=== PATIENT | male | born 1965 | race Caucasian/White ===

== ENCOUNTER 2016-08-23 02:46 | Emergency (ER) | payer BC ==
[~2016-08-23] VITALS: Ht 182.9 cm; Wt 148.4 kg
[~2016-08-23 02:46] MED LIST: B-121000 MC2 PO; BENICAR HCT1 TABLE2 PO; CELEBREX200 MG PO; DAILY VITE1 EAC1 PO; EXCEDRIN MIGRA1 EAC3 PO; FLEXERIL10 MG PO; LIDODERM; LIDODERM 5% P1 PATCH TD; Levothroid,Synthroid PO; NAPROSYN500 MG PO; NUCYNTA50 MG PO; PRAVACHOL40 MG PO; PROTONIX40 MG PO; VITAMIN B12-FO1 EACH PO; VITAMIN D1000 INTUN PO; Vicodin,Lortab 5/500 PO; Vitamin B-12 PO
[2016-08-23 03:12] LABS: HEMATOCRIT 43.6 % (38.0-50.0); MCH 26.3 PG (29.0-34.0); MCHC 33.3 G/DL (30.0-36.0); PLATELET COUNT 164 K/uL (156-360); RBC DIS.WIDTH-SD 39.9 % (39-53); RED BLOOD COUNT 5.52 M/uL (4.00-5.50); WHITE BLOOD COUNT 3.2 K/uL (4.1-10.2)
[2016-08-23 03:23] LABS: CHLORIDE 101 mEq/L (99-109); POTASSIUM 3.7 mEq/L (3.7-5.4); SODIUM 138 mEq/L (136-147)
[2016-08-23 03:25] LABS: GLUCOSE 103 mg/dL (70-99)
[2016-08-23 03:26] LABS: ANION GAP 12 MEQ/L (2-14)
[2016-08-23 03:29] LABS: GFR ESTIMATE (CALCULATED) > 59 mL/min/
[2016-08-23 03:30] LABS: UREA NITROGEN (BUN) 14 mg/dL (9-23)
[2016-08-23 04:13] LABS: INFLUENZA A VIRAL ANTIGEN NEGATIVE; INFLUENZA B VIRAL ANTIGEN POSITIVE
[2016-08-23] MEDS ORDERED: VENTOLIN HFA18 GM IH (04:26)
[2016-08-23] MEDS ORDERED: ZOFRAN ODT4 MG PO (04:26)
[2016-08-23] MEDS ORDERED: ROBITUSSIN AC,T10 ML PO (04:26)
[2016-08-23 04:39] VITALS: BP 121/83
== END 2016-08-23 04:41 | disposition home or self-care (01) ==
LOC: EME 02:46
PROVIDERS: Emergency Medicine
DX: J10.1 Influenza due to other identified influenza virus with other respiratory manifestations (principal); J98.01 Acute bronchospasm; Z98.84 Bariatric surgery status; E03.9 Hypothyroidism, unspecified; K21.9 Gastro-esophageal reflux disease without esophagitis; G43.909 Migraine, unspecified, not intractable, without status migrainosus; G89.29 Other chronic pain
CPT/HCPCS: 71020; 80048; 85027; 87502; 93005; 94640; 99281; 99284

== ENCOUNTER 2017-04-06 07:15 | Day surgery (SDC) | payer BC ==
[~2017-04-06] VITALS: Ht 182.9 cm; Wt 145.1 kg
[~2017-04-06 07:15] MED LIST changes: +ROBITUSSIN AC,T10 ML PO; +VENTOLIN HFA18 GM IH; +ZOFRAN ODT4 MG PO
[2017-04-06] MEDS ORDERED: ITRACONAZOLE100 MG PO (07:39)
[2017-04-06 07:42] VITALS: BP 135/85
[2017-04-06 09:14] LABS: POINT-OF-CARE METER ID UU14107333; POINT-OF-CARE USER ID AHSRSCSLC11
[2017-04-06 12:00] VITALS: BP 150/79
[2017-04-06 13:23] VITALS: BP 136/81
== END 2017-04-06 13:20 | disposition home or self-care (01) ==
LOC: SDC 07:15
PROVIDERS: Surgery
PROC: 0WQF0ZZ Repair Abdominal Wall, Open Approach (ICD-10-PCS; principal; 2017-04-06)
DX: K42.9 Umbilical hernia without obstruction or gangrene (principal); I10 Essential (primary) hypertension; E66.01 Morbid (severe) obesity due to excess calories; G47.33 Obstructive sleep apnea (adult) (pediatric); K21.9 Gastro-esophageal reflux disease without esophagitis; E78.5 Hyperlipidemia, unspecified; R73.03 Prediabetes; Z79.84 Long term (current) use of oral hypoglycemic drugs; Z98.84 Bariatric surgery status
CPT/HCPCS: 82948; J0131; J0330; J0690; J1100; J1170; J1644; J2250; J2405; J3010; S0020

== ENCOUNTER 2017-06-12 11:13 | Inpatient (IN) | payer BC ==
[~2017-06-12] VITALS: Ht 182.9 cm; Wt 143.6 kg
[2017-06-12] VITALS (10 sets, daily range): BP systolic 113–133; BP diastolic 59–88
[~2017-06-12 11:13] MED LIST changes: +ITRACONAZOLE100 MG PO
[2017-06-12 13:01] LABS: HEMATOCRIT 25.3 % (38.0-50.0); MCH 26.6 PG (29.0-34.0); MCHC 32.8 G/DL (30.0-36.0); MCV 81.1 FL (86-99); MEAN PLAT.VOLUME 10.6 uM^3 (9.0-12.4); PLATELET COUNT 304 K/uL (156-360); RBC DIS.WIDTH-CV 13.5 % (11.8-14.6); RBC DIS.WIDTH-SD 39.4 % (39-53); RED BLOOD COUNT 3.12 M/uL (4.00-5.50); WHITE BLOOD COUNT 10.2 K/uL (4.1-10.2)
[2017-06-12 13:03] LABS: CARBON DIOXIDE (BICARBONATE) 31.3 MEQ/L (20-31)
[2017-06-12 13:12] LABS: CHLORIDE 104 mEq/L (99-109); POTASSIUM 4.1 mEq/L (3.7-5.4); SODIUM 139 mEq/L (136-147)
[2017-06-12 13:14] LABS: GLUCOSE 113 mg/dL (70-99)
[2017-06-12 13:15] LABS: ANION GAP 9 MEQ/L (2-14)
[2017-06-12 13:18] LABS: GFR ESTIMATE (CALCULATED) > 59 mL/min/
[2017-06-12 13:19] LABS: UREA NITROGEN (BUN) 34 mg/dL (9-23)
[2017-06-12 13:25] LABS: TROP-I INTERPRETATION NEGATIVE; TROPONIN-I 0.01 ng/mL (0.0-0.30)
[2017-06-12] MEDS ORDERED: DOXAZOSIN MESYLA2 MG PO (13:55)
[2017-06-12] MEDS ORDERED: KEFLEX500 MG PO (13:56)
[2017-06-12] MEDS ORDERED: ADIPEX-P37.5 M1 PO (13:57)
[2017-06-12 19:29] LABS: TROP-I INTERPRETATION NEGATIVE; TROPONIN-I 0.01 ng/mL (0.0-0.30)
[2017-06-13] VITALS (11 sets, daily range): BP systolic 112–137; BP diastolic 57–75
[2017-06-13 01:50] LABS: TROP-I INTERPRETATION NEGATIVE; TROPONIN-I 0.01 ng/mL (0.0-0.30)
[2017-06-13 07:48] LABS: HEMATOCRIT 21.1 % (38.0-50.0); MCV 82.1 FL (86-99)
[2017-06-13 20:10] LABS: HEMATOCRIT 23.2 % (38.0-50.0); MCV 83.5 FL (86-99)
[2017-06-14 06:12] LABS: BASOPHIL COUNT 0.1 K/uL (0-0.1); EOSINOPHIL (%) 2.2 % (0-5); EOSINOPHIL COUNT 0.1 K/uL (0-0.3); IMMATURE GRANULOCYTE (%) 1.5 % (0.0-0.7); IMMATURE GRANULOCYTE COUNT 0.1 K/uL; INSTRUMENT ABS NEUTROPHIL CT 2.4 K/uL; LYMPHOCYTE COUNT 1.2 K/uL (1.0-2.8); MCH 27.7 PG (29.0-34.0); MCHC 33.1 G/DL (30.0-36.0); MCV 83.9 FL (86-99); MEAN PLAT.VOLUME 10.4 uM^3 (9.0-12.4); MONOCYTE (%) 8.3 % (3-12); MONOCYTE COUNT 0.3 K/uL (0-0.8); NEUTROPHIL (%) 57.9 % (45-76); NEUTROPHIL COUNT 2.4 K/uL (1.8-6.4); PLATELET COUNT 241 K/uL (156-360); RBC DIS.WIDTH-CV 14.6 % (11.8-14.6); RBC DIS.WIDTH-SD 44.1 % (39-53); WHITE BLOOD COUNT 4.1 K/uL (4.1-10.2)
[2017-06-14 07:28] LABS: ALKALINE PHOSPHATASE 62 IU/L (3-129); ANION GAP 7 MEQ/L (2-14); CHLORIDE 109 MEQ/L (99-109); GFR ESTIMATE (CALCULATED) > 59 mL/min/; GLUCOSE 97 mg/dL (70-99); POTASSIUM 4.1 MEQ/L (3.7-5.4); SAMPLE HEMOLYSIS CHECK 0; SAMPLE ICTERIC CHECK 0; SAMPLE LIPEMIA CHECK 0; SODIUM 143 MEQ/L (136-147); TOTAL BILIRUBIN 0.4 MG/DL (0.0-1.0)
[2017-06-14 07:29] LABS: UREA NITROGEN (BUN) 14 mg/dL (9-23)
[2017-06-14 07:56] VITALS: BP 109/56
[2017-06-14 13:12] LABS: HEMATOCRIT 24.2 % (38.0-50.0); MCV 84.9 FL (86-99)
[2017-06-14 15:45] VITALS: BP 122/69
[2017-06-14 20:40] VITALS: BP 119/77
[2017-06-14 20:50] LABS: HEMATOCRIT 26.1 % (38.0-50.0); MCV 84.2 FL (86-99)
[2017-06-15 06:28] LABS: BASOPHIL COUNT 0.1 K/uL (0-0.1); EOSINOPHIL (%) 2.6 % (0-5); EOSINOPHIL COUNT 0.1 K/uL (0-0.3); HEMATOCRIT 26.8 % (38.0-50.0); IMMATURE GRANULOCYTE (%) 1.2 % (0.0-0.7); IMMATURE GRANULOCYTE COUNT 0.1 K/uL; INSTRUMENT ABS NEUTROPHIL CT 2.3 K/uL; LYMPHOCYTE COUNT 1.3 K/uL (1.0-2.8); MCH 27.3 PG (29.0-34.0); MCHC 32.5 G/DL (30.0-36.0); MEAN PLAT.VOLUME 10.1 uM^3 (9.0-12.4); MONOCYTE (%) 10.4 % (3-12); MONOCYTE COUNT 0.4 K/uL (0-0.8); NEUTROPHIL (%) 54.9 % (45-76); NEUTROPHIL COUNT 2.3 K/uL (1.8-6.4); PLATELET COUNT 308 K/uL (156-360); RBC DIS.WIDTH-CV 14.7 % (11.8-14.6); RBC DIS.WIDTH-SD 44.9 % (39-53); RED BLOOD COUNT 3.19 M/uL (4.00-5.50); WHITE BLOOD COUNT 4.2 K/uL (4.1-10.2)
[2017-06-15 07:01] VITALS: BP 126/79
[2017-06-15 07:01] LABS: ALKALINE PHOSPHATASE 68 IU/L (3-129); ANION GAP 4 MEQ/L (2-14); CHLORIDE 107 MEQ/L (99-109); GFR ESTIMATE (CALCULATED) > 59 mL/min/; GLUCOSE 93 mg/dL (70-99); POTASSIUM 4.3 MEQ/L (3.7-5.4); SAMPLE HEMOLYSIS CHECK 0; SAMPLE ICTERIC CHECK 0; SAMPLE LIPEMIA CHECK 0; SODIUM 141 MEQ/L (136-147); UREA NITROGEN (BUN) 10 mg/dL (9-23)
[2017-06-15 07:08] LABS: TOTAL BILIRUBIN 0.5 MG/DL (0.0-1.0)
[2017-06-15 08:15] VITALS: BP 119/62
[2017-06-15 14:44] VITALS: BP 131/67
[2017-06-15] MEDS ORDERED: PANTOPRAZOLE SO40 MG PO (18:23)
[2017-06-15] MEDS ORDERED: SUCRALFATE1 GM PO (18:23)
[2017-06-15] MEDS ORDERED: ONDANSETRON4 MG/2 ML IV (18:23)
[2017-06-15 18:43] VITALS: BP 118/70
== END 2017-06-15 23:32 | disposition short-term general hospital (02) | DRG 378 ==
LOC: EME 11:13 → EDOF 13:34 → 5EAST 13:34 → ENRESERV 13:35 → 5EAST 15:20
PROVIDERS: Emergency Medicine; Hospitalist; Internal Medicine
PROC: 30233N1 Transfusion of Nonautologous Red Blood Cells into Peripheral Vein, Percutaneous Approach (ICD-10-PCS; 2017-06-12)
PROC: 0DJ08ZZ Inspection of Upper Intestinal Tract, Via Natural or Artificial Opening Endoscopic (ICD-10-PCS; principal; 2017-06-13)
PROC: 0DJD8ZZ Inspection of Lower Intestinal Tract, Via Natural or Artificial Opening Endoscopic (ICD-10-PCS; 2017-06-15)
DX: K92.1 Melena (principal); D62 Acute posthemorrhagic anemia; Z98.84 Bariatric surgery status; Z68.41 Body mass index [BMI] 40.0-44.9, adult; E66.01 Morbid (severe) obesity due to excess calories; E86.0 Dehydration; K28.9 Gastrojejunal ulcer, unspecified as acute or chronic, without hemorrhage or perforation; K64.8 Other hemorrhoids; K44.9 Diaphragmatic hernia without obstruction or gangrene; K57.30 Diverticulosis of large intestine without perforation or abscess without bleeding; R55 Syncope and collapse; I10 Essential (primary) hypertension; R31.9 Hematuria, unspecified; K21.9 Gastro-esophageal reflux disease without esophagitis; E03.9 Hypothyroidism, unspecified; G43.909 Migraine, unspecified, not intractable, without status migrainosus; M54.9 Dorsalgia, unspecified; R06.02 Shortness of breath; Z87.11 Personal history of peptic ulcer disease
CPT/HCPCS: 71020; 78278; 80048; 80053; 82803; 83605; 84484; 85014; 85018; 85025; 85027; 86850; 86900; 86901; 86920; 87040; 93005; 94640; 99281; 99285; A9560; C9113; J3010; J7030; J7042; J7050; P9016

== ENCOUNTER → 2017-11-15 | Outpatient (CLI) | payer BC ==
[~2017-11-15] VITALS: Ht 172.7 cm; Wt 168.2 kg
[~2017-11-15] MED LIST changes: +ADIPEX-P37.5 M1 PO; +DOXAZOSIN MESYLA2 MG PO; +IRON325 M1 PO; +KEFLEX500 MG PO; +ONDANSETRON4 MG/2 ML IV; +PANTOPRAZOLE SO40 MG PO; +SUCRALFATE1 GM PO
[2017-11-15 14:09] LABS: HEMATOCRIT 41.7 % (38.0-50.0); HEMOGLOBIN 13.2 G/DL (12.5-16.6); MCV 78.1 FL (86-99)
== END | disposition home or self-care (01) ==
LOC: AMB 12:30
PROVIDERS: Surgery
PROC: 0DJ08ZZ Inspection of Upper Intestinal Tract, Via Natural or Artificial Opening Endoscopic (ICD-10-PCS; principal; 2017-11-15)
DX: K28.9 Gastrojejunal ulcer, unspecified as acute or chronic, without hemorrhage or perforation (principal); K44.9 Diaphragmatic hernia without obstruction or gangrene; D64.9 Anemia, unspecified; Z98.84 Bariatric surgery status; G47.30 Sleep apnea, unspecified; I10 Essential (primary) hypertension; E78.5 Hyperlipidemia, unspecified; R73.03 Prediabetes; Z79.84 Long term (current) use of oral hypoglycemic drugs; Z90.49 Acquired absence of other specified parts of digestive tract
CPT/HCPCS: 85014; 85018